=== PATIENT | male | born 1995 | race American Indian/Alaskan Native ===

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

== ENCOUNTER 2019-01-28 11:02 | Emergency (ER) | payer MEDICAID, OTHER ==
[2019-01-28] MEDS ORDERED: NACL 0.9% 1000 ML 1,000 ML IV ONE ×2 (11:09→13:36)
--- NOTE | 2019-01-28 11:13 | Emergency Department Report ---
ED Abdominal Pain HPI - General Stated Complaint: ABD PAIN Time Seen by Provider: 01/28/19 11:09 Source: patient, EMS Mode of arrival: Stretcher Limitations: No Limitations - History of Present Illness Initial Comments: Patient is a 23-year-old male that presents to the emergency room for severe abdominal pain. Patient states he abdominal pain started at 9 AM this morning. Patient states the pain is worsening. Patient states the pain is 10 out of 10. Patient states the pain is better with rest and worse with movement and palpation. Patient also states she is vomiting blood. Patient states he vomited large clots. MD Complaint: abdominal pain -: Sudden Location: diffuse Radiation: none Migration to: no migration Severity: severe Severity scale (0 -10): 10 - Related Data Previous Rx's Medication Instructions Recorded Last Taken Type Ondansetron [Zofran Odt] 4 mg PO Q6HR PRN #15 tab.rapdis 01/28/19 Unknown Rx Pantoprazole [Protonix] 40 mg PO QDAY #30 tablet 01/28/19 Unknown Rx Allergies Allergy/AdvReac Type Severity Reaction Status Date / Time No Known Allergies Allergy Verified 01/28/19 11:12 ED Review of Systems ROS: Stated complaint: ABD PAIN Other details as noted in HPI Constitutional: denies: chills, fever Eyes: denies: eye pain, eye discharge, vision change ENT: denies: ear pain, throat pain Respiratory: denies: cough, shortness of breath, wheezing Cardiovascular: denies: chest pain, palpitations Endocrine: no symptoms reported Gastrointestinal: abdominal pain, nausea, vomiting, hematemesis. denies: diarrhea, constipation, melena, hematochezia Genitourinary: denies: urgency, dysuria Musculoskeletal: denies: back pain, joint swelling, arthralgia Skin: denies: rash, lesions Neurological: denies: headache, weakness, paresthesias Psychiatric: denies: anxiety, depression Hematological/Lymphatic: denies: easy bleeding, easy bruising ED Past Medical Hx - Past Medical History Previous Medical History?: No Hx Hypertension: No Hx CVA: No Hx Heart Attack/AMI: No Hx Congestive Heart Failure: No Hx Diabetes: No Hx Deep Vein Thrombosis: No Hx Pulmonary Embolism: No Hx GERD: No Hx Liver Disease: No Hx Renal Disease: No Hx Sickle Cell Disease: No Hx Arthritis: No Hx Headaches / Migraines: No Hx Seizures: No Hx Kidney Stones: No Hx Psychiatric Treatment: No Hx Asthma: No Hx COPD: No Hx Tuberculosis: No Hx Dementia: No Hx HIV: No - Surgical History Past Surgical History?: Yes Hx Coronary Stent: No Hx Open Heart Surgery: No Hx Pacemaker: No Hx Internal Defibrillator: No Hx Cholecystectomy: No Hx Appendectomy: No Hx Breast Surgery: No Additional Surgical History: T&A @ 4years age - Family History Family history: no significant - Social History Smoking Status: Never Smoker Substance Use Type: Alcohol, Marijuana - Medications Home Medications: Home Medications Medication Instructions Recorded Confirmed Last Taken Type Ondansetron [Zofran Odt] 4 mg PO Q6HR PRN #15 tab.rapdis 01/28/19 Unknown Rx Pantoprazole [Protonix] 40 mg PO QDAY #30 tablet 01/28/19 Unknown Rx ED Physical Exam - General General appearance: alert, in no apparent distress - Head Head exam: Present: atraumatic, normocephalic - Eye Eye exam: Present: normal appearance - ENT ENT exam: Present: mucous membranes moist - Neck Neck exam: Present: normal inspection - Respiratory Respiratory exam: Present: normal lung sounds bilaterally. Absent: respiratory distress - Cardiovascular Cardiovascular Exam: Present: regular rate, normal rhythm. Absent: systolic murmur, diastolic murmur, rubs, gallop - GI/Abdominal GI/Abdominal exam: Present: soft, tenderness (generalized tenderness to palpation), normal bowel sounds - Rectal Rectal exam: Present: deferred - Extremities Exam Extremities exam: Present: normal inspection - Back Exam Back exam: Present: normal inspection - Neurological Exam Neurological exam: Present: alert, oriented X3 - Psychiatric Psychiatric exam: Present: normal affect, normal mood - Skin Skin exam: Present: warm, dry, intact, normal color. Absent: rash ED Course Vital Signs 01/28/19 01/28/19 01/28/19 11:29 12:30 13:44 Temperature 98.4 F Pulse Rate 52 L 61 Respiratory 16 18 18 Rate Blood Pressure Blood Pressure 110/59 125/66 [Right] O2 Sat by Pulse 100 96 Oximetry 01/28/19 01/28/19 01/28/19 14:30 15:32 15:35 Temperature 98.5 F 98.5 F Pulse Rate 55 L 64 64 Respiratory 20 15 15 Rate Blood Pressure 126/57 126/57 Blood Pressure 129/65 [Right] O2 Sat by Pulse 98 100 100 Oximetry - Reevaluation(s) Reevaluation #1: Patient complains of severe abdominal pain and vomiting appear patient will be given pain meds and Zofran. 01/28/19 13:35 Reevaluation #2: Patient currently being scoped by GI. I signed the patient out to Dr. Wiseman for final disposition. 01/28/19 15:39 - Consultations Consultation #1: gi consulted. gi to see pt 01/28/19 14:42 Gini, the GI nurse practitioner saw the patient and she states she is going to discuss the case with her attending and possibly scope the patient 01/28/19 15:05 I discussed case with Dr. madera, GI. Dr. madera states the patient has a small Karen-Mathur tear from hyperemesis and marijuana. He recommends patient to be discharged home with a Protonix prescription. GI states from their standpoint the patient is stable for discharge. 01/28/19 15:57 ED Medical Decision Making - Lab Data Result diagrams: 01/28/19 11:34 01/28/19 11:34 - Radiology Data Radiology results: report reviewed CT ABDOMEN AND PELVIS WITH CONTRAST HISTORY: Abdominal pain with nausea and vomiting COMPARISON: None. TECHNIQUE: Axial CT images were obtained through the abdomen and pelvis after 100 cc of Omnipaque 300 intravenously. Sagittal and coronal reformatted images. All CT scans at this location are performed using CT dose reduction for ALARA by means of automated exposure control. FINDINGS: CT ABDOMEN: Lung Bases: Clear. Liver: No significant abnormality. Biliary: No significant abnormality. Spleen: No significant abnormality. Unenlarged. Pancreas: No significant abnormality. Adrenals: No significant abnormality. Kidneys: No significant abnormality. Lymphatics: No lymphadenopathy. Vasculature: No significant abnormality. Bowel/Peritoneum: There is moderate fluid throughout small bowel loops and colon which could be related to gastroenteritis. There is no evidence for obstruction, focal inflammation or free air. No ascites. Normal appendix. CT PELVIS: : No significant abnormality. Osseous Structures: No significant abnormality. Additional Findings: None IMPRESSION: No acute inflammatory process. Moderate fluid throughout the small bowel loops and colon may be related to gastroenteritis. Please correlate with the clinical presentation of the patient. - Medical Decision Making Patient is a 23-year-old male presents with generalized abdominal pain and vomiting blood. Patient had gross hematemesis. Patient had a CT of the abdomen done which showed gastroenteritis. Patient's labs are remarkable for elevated WBC. Patient's chemistry negative. Patient given fluids and IV Zofran. Patient's symptoms improved. Patient also given Dilaudid for pain which helped his pain. GI consulted and he saw the patient. GI performed a scope on the patient. Patient had a EGD done by GI and it was positive for a Karen-Mathur tear. Patient clinical findings consistent with hyperemesis secondary to marijuana use and Karen-Mathur tear and gastroenteritis. I discussed all results with patient. Patient is stable for discharge. Patient will be discharged home. Patient agrees with plan of care. Patient given discharge instructions. Patient voiced understanding discharge instructions. - Differential Diagnosis abdominal pain. Hyperemesis. hematemesis. Critical Care Time: Yes Critical care attestation.: If time is entered above; I have spent that time in minutes in the direct care of this critically ill patient, excluding procedure time. Critical Care Time: 45 minutes ED Disposition Clinical Impression: Gastroenteritis, Karen-Mathur tear, Cannabinoid hyperemesis syndrome Abdominal pain Qualifiers: Abdominal location: generalized Qualified Code(s): R10.84 - Generalized abdominal pain Nausea & vomiting Qualifiers: Vomiting type: unspecified Vomiting Intractability: non-intractable Qualified Code(s): R11.2 - Nausea with vomiting, unspecified Vomiting blood Qualifiers: Nausea presence: with nausea Qualified Code(s): K92.0 - Hematemesis Disposition: DC-01 TO HOME OR SELFCARE Is pt being admited?: No Does the pt Need Aspirin: No Condition: Stable Instructions: Diet for Ulcers and Gastritis (ED), Gastroenteritis (ED), Gastroesophageal Reflux Disease (ED), Acute Nausea and Vomiting (ED) Additional Instructions: Patient to follow up with primary care in 2-3 days. Patient to follow up with GI in 2-3 days. Patient to return to ER if condition worsens. Patient to stop marijuana use. Patient to take meds as directed. Patient increase water. Patient to eat a reflux and BRAT diet. Patient to avoid ibuprofen. Patient to take Tylenol when necessary for pain. Prescriptions: Pantoprazole [Protonix] 40 mg PO QDAY #30 tablet Ondansetron [Zofran Odt] 4 mg PO Q6HR PRN #15 tab.rapdis PRN Reason: Nausea And Vomiting Referrals: EMERSON ORANTESLA GRANGE MD ALFREDITO [Primary Care Provider] - 2-3 Days Time of Disposition: 16:02
[2019-01-28 12:13] LABS: Basophils % (Auto) 0.2 % (0.0-1.8); Eosinophils % (Auto) 0.2 % (0.0-4.3); Hematocrit 47.5 % (35.5-45.6); Hemoglobin 16.2 gm/dl (11.8-15.2); Lymphocytes # (Auto) 0.9 K/mm3 (1.2-5.4); Lymphocytes % (Auto) 5.3 % (13.4-35.0); Mean Corpuscular HGB Conc 34 % (32-34); Mean Corpuscular Volume 92 fl (84-94); Monocytes # (Auto) 1.3 K/mm3 (0.0-0.8); Monocytes % (Auto) 7.8 % (0.0-7.3); Platelet Count 268 K/mm3 (140-440); Red Blood Count 5.18 M/mm3 (3.65-5.03); Red Cell Distribution Width 13.8 % (13.2-15.2)
[2019-01-28 12:51] LABS: Alanine Aminotransferase 15 units/L (7-56); Albumin 4.6 g/dL (3.9-5); BUN/Creatinine Ratio 9; Bilirubin,Direct 0.2 mg/dL (0-0.2); Blood Urea Nitrogen 11 mg/dL (9-20); Calcium 9.1 mg/dL (8.4-10.2); Hemolysis Index 10
[2019-01-28] MEDS ORDERED: DILAUDID IV ONE (13:31)
[2019-01-28] MEDS ORDERED: ZOFRAN IV ONE (13:31)
--- NOTE | 2019-01-28 13:55 | Cat Scan Report ---
CT ABDOMEN AND PELVIS WITH CONTRAST HISTORY: Abdominal pain with nausea and vomiting COMPARISON: None. TECHNIQUE: Axial CT images were obtained through the abdomen and pelvis after 100 cc of Omnipaque 300 intravenously. Sagittal and coronal reformatted images. All CT scans at this location are performed using CT dose reduction for ALARA by means of automated exposure control. FINDINGS: CT ABDOMEN: Lung Bases: Clear. Liver: No significant abnormality. Biliary: No significant abnormality. Spleen: No significant abnormality. Unenlarged. Pancreas: No significant abnormality. Adrenals: No significant abnormality. Kidneys: No significant abnormality. Lymphatics: No lymphadenopathy. Vasculature: No significant abnormality. Bowel/Peritoneum: There is moderate fluid throughout small bowel loops and colon which could be relat ed to gastroenteritis. There is no evidence for obstruction, focal inflammation or free air. No ascit es. Normal appendix. CT PELVIS: : No significant abnormality. Osseous Structures: No significant abnormality. Additional Findings: None IMPRESSION: No acute inflammatory process. Moderate fluid throughout the small bowel loops and colon may be related to gastroenteritis. Please c orrelate with the clinical presentation of the patient. Signer Name: Escobra Doll Jr, MD Signed: 01/28/2019 1:51 PM Workstation Name: [id number]
[2019-01-28] MEDS ORDERED: PROTONIX IV ONE (15:01)
--- NOTE | 2019-01-28 15:02 | Gastroenterology Consultation ---
History of Present Illness - Reason for Consult Consult date: 01/28/19 [facility] Requesting physician: ALVAREZ PHELPS III - History of Present Illness Patient is a 23 y/o male with no significant medical history who presented to ED with c/o acute onset of epigastric pain that began this morning with associated N/V with bloody emesis to which GI has been consulted. This afternoon patient was resting on stretcher in ED w/o acute distress. Reports multiple episodes of vomiting today with emesis initially being "dark" and then became bright red blood. No melena or hematochezia. Denies fever, CP, SOB, dysphagia, diarrhea or constipation. Has no prior hx of GI bleeding, PUD, or liver disease. No NSAID use. Drinks alcohol occasionally. Admit to daily marijuana use. No prior EGD or abd surgery. Past History Past Medical History: No medical history Past Surgical History: tonsillectomy Social history: other (marijuana). denies: smoking, alcohol abuse Medications and Allergies Allergies Allergy/AdvReac Type Severity Reaction Status Date / Time No Known Allergies Allergy Verified 01/28/19 11:12 Home Medications Medication Instructions Recorded Confirmed Last Taken Type No Known Home Medications [No 01/28/19 01/28/19 Unknown History Reported Home Medications] Active Meds: medications reviewed/updated as required Review of Systems - Review of Systems All systems: negative Gastrointestinal: abdominal pain (epigastric), vomiting, hematemesis Exam - Constitutional Vital Signs: Temp Pulse Resp BP Pulse Ox 98.4 F 55 L 20 129/65 98 01/28/19 12:30 01/28/19 14:30 01/28/19 14:30 01/28/19 14:30 01/28/19 14:30 General appearance: no acute distress - Respiratory Respiratory effort: normal - Cardiovascular Rhythm: regular - Gastrointestinal General gastrointestinal: Present: soft, non-tender, non-distended, normal bowel sounds - Neurologic Neurological: alert and oriented x3 - Labs CBC & Chem 7: 01/28/19 11:34 01/28/19 11:34 Lab Results: Laboratory Results - last 24 hr 01/28/19 01/28/19 11:34 11:34 WBC 16.9 H RBC 5.18 H Hgb 16.2 H Hct 47.5 H MCV 92 MCH 31 MCHC 34 RDW 13.8 Plt Count 268 Lymph % (Auto) 5.3 L [place] % (Auto) 7.8 H Eos % (Auto) 0.2 Baso % (Auto) 0.2 Lymph # 0.9 L [place] # 1.3 H Eos # 0.0 Baso # 0.0 Seg Neutrophils % 86.5 H Seg Neutrophils # 14.6 H Sodium 141 Potassium 4.2 Chloride 103.8 Carbon Dioxide 27 Anion Gap 14 BUN 11 Creatinine 1.2 Estimated GFR > 60 BUN/Creatinine Ratio 9 Glucose 142 H Calcium 9.1 Total Bilirubin 0.30 Direct Bilirubin 0.2 Indirect Bilirubin 0.1 AST 24 ALT 15 Alkaline Phosphatase 57 Total Protein 7.7 Albumin 4.6 Albumin/Globulin Ratio 1.5 Assessment and Plan 1.hematemesis 2.epigastric pain-improved 3.N/V-improved -WBC 19.6 -plt, BUN, and LFTs WNL -H/H 16.2/47.5 -abd CT- no acute inflammatory process (moderate fluid throughout small bowel loops and colon may be related to gastroenteritis) -patient reports acute onset of N/V this am with emesis initially being "dark" and then turned to bright red blood. No melena or hematochezia. -etiology-possibly M-W tear vs other (N/V likely contributed to daily marijuana use; cannabinoid hyperemesis?) -will schedule for EGD today for further evaluation -Keep NPO for now -start on PPI -continue supportive care -substance cessation discussed/encouraged with patient -further recommendations to follow EGD results
[2019-01-28] MEDS ORDERED: NACL 0.9% 1000 ML 1,000 ML ONE (15:13)
--- NOTE | 2019-01-28 15:34 | Anesthesia Day of Surgery ---
Anesthesia Day of Surgery - Day of Surgery Patient Examined: Yes Patient H&P Reviewed: Yes Patient is NPO: Yes
--- NOTE | 2019-01-28 15:34 | Anesthesia Consultation ---
Anesthesia Consult and Med Hx Date of service: 01/28/19 - Airway Anesthetic Teeth Evaluation: Good ROM Head & Neck: Adequate Mental/Hyoid Distance: Adequate Mallampati Class: Class II Intubation Access Assessment: Good - Pre-Operative Health Status ASA Pre-Surgery Classification: ASA2, Emergency Proposed Anesthetic Plan: MAC - Pulmonary Hx Smoking: Yes Hx Asthma: No COPD: No - Cardiovascular System Hx Hypertension: No Hx Heart Attack/AMI: No Hx Pacemaker: No Hx Internal Defibrillator: No - Central Nervous System Hx Seizures: No - Endocrine Hx Renal Disease: No Hx Liver Disease: No - Hematic Hx Sickle Cell Disease: No
[2019-01-28] MEDS ORDERED: DIPRIVAN 10 MG/ML IV ONE ×2 (15:46→15:52)
--- NOTE | 2019-01-28 15:59 | Post Operative Note ---
Pre-op diagnosis: Hematemesis Post-op diagnosis: other (MWT) Findings: 1. MWT at jxn, no visible vessel and not actively bleeding 2. Otherwise negative and no blood/clots in the upper GI tract Procedure: EGD Anesthesia: MAC Surgeon: AMINTA PADILLA Estimated blood loss: none Pathology: none Specimen disposition: other (N/A) Condition: stable Disposition: other (Recs: 1. OK to d/c home from the ER. 2. Rx for protonix on admit. 3. No restrictions on diet. 4. Patient should avoid NSAIDs and substance abuse.)
--- NOTE | 2019-01-28 17:01 | Operative Report ---
PROCEDURE PERFORMED: Esophagogastroduodenoscopy. PREOPERATIVE DIAGNOSIS: Hematemesis. POSTOPERATIVE DIAGNOSIS: Karen-Mathur tear. ENDOSCOPIST: James Tenorio MD INSTRUMENT: Olympus video endoscope. MEDICATIONS: MAC anesthesia by [facility]. COMPLICATIONS: No apparent complications. ESTIMATED BLOOD LOSS: None. SPECIMENS: None. IMPLANTS: None. ASSISTANTS: None. CONDITION AT COMPLETION: Stable. TECHNIQUE: The patient was informed of the risks and benefits of the procedure. He signed the informed consent to proceed. He was placed in left lateral decubitus position. The above sedative medications were given. His vital signs remained stable throughout the procedure. The instrument was advanced from the mouth to the second portion of the duodenum under direct visualization. At that point, the bowel was insufflated and the endoscope was slowly withdrawn. FINDINGS: 1. No blood and no blood clots in the upper GI tract. 2. Small, 8 mm, Karen-Mathur tear at the gastroesophageal junction with no evidence of visible vessel and no evidence of active bleeding. 3. Otherwise, normal upper gastrointestinal tract. RECOMMENDATIONS: 1. Okay to discharge the patient home from the Emergency Room. 2. A prescription for Protonix on discharge, 40 mg daily. 3. No restrictions on the patient's diet. 4. The patient should avoid nonsteroidal anti-inflammatory drugs and substance abuse. JOB# [id number] BETTY/KRISTY
--- NOTE | 2019-01-28 17:33 | Post Anesthesia Evaluation ---
- Post Anesthesia Evaluation Patient Participated: Yes Airway Patent: Yes Stable Respiratory Function: Yes Nausea/Vomiting: No Temp > 96.8F: Yes Pain Manageable: Yes Adequeate Hydration: Yes Anesthesia Complications: No Block Receding Appropriately: Not Applicable Patient on Ventilator: No
[2019-01-28 20:32] VITALS: BP 137/60
== END 2019-01-28 19:30 | disposition home or self-care (01) ==
LOC: ED 11:02
DX: K52.9 Noninfective gastroenteritis and colitis, unspecified (principal); K92.0 Hematemesis; F12.10 Cannabis abuse, uncomplicated
CPT/HCPCS: 36415; 74177; 80048; 80076; 85025; 96361; 96374; 96375; 99284; J1170; J2405; J2704; J7030; Q9967